=== PATIENT | male | born 1985 | race Hispanic/Latino ===

== ENCOUNTER 2016-11-08 18:15 | Emergency (ER) | payer SELFPAY ==
[2016-11-08 18:30] VITALS: TEMP 97.9
[2016-11-08] MEDS ORDERED: KETOROLAC TROMETHAMINE INJ 30 MG/ML VIAL IV ONE (18:50)
[2016-11-08] MEDS ORDERED: SODIUM CHLORIDE 0.9% (FLUSH) 10 ML SYG IV PRN (18:50)
[2016-11-08] MEDS ORDERED: ONDANSETRON INJ 4 MG/2 ML VIAL IV ONE (18:50)
--- NOTE | 2016-11-08 19:00 | ED.PDOC ---
History of Present Illness - General Information Source: patient, family - History of Present Illness Initial Comments: PT PRESENTS TO THE ED WITH COMPLAINTS OF PROGRESSIVELY WORSENING LUQ/LLQ ABDOMINAL PAIN X 1 WEEK. PT REPORTS PREVIOUS EPISODES OF POST PRANDIAL EPIGASTRIC PAIN BUT NOW STATES THAT PAIN IS CONSTANT. PT DENIES, FEVER, CHILLS , NAUSEA, VOMITING, CONSTIPATION. Abdominal Pain Onset Location: LUQ, LLQ Pain Radiation: no radiation Quality: moderate, severe, steady Timing/Duration: 1 week Improving Factors: nothing Worsening Factors: eating Associated Symptoms: denies symptoms <Abdoulaye Hammond - Last Filed: 11/08/16 18:58> <Rafia Tipton - Last Filed: 11/08/16 21:21> - General Chief Complaint: Abdominal Pain Stated Complaint: upper abd pain, worse after eating Time Seen by Provider: 11/08/16 18:46 Review of Systems - Review of Systems Constitutional: Denies: chills, fever EENTM: Denies: ear pain, nose congestion Respiratory: Denies: cough, short of breath Cardiology: Denies: chest pain, palpitations Gastrointestinal/Abdominal: States: see HPI, abdominal pain. Denies: nausea, vomiting Genitourinary: Denies: dysuria, frequency Musculoskeletal: Denies: joint pain, joint swelling Skin: Denies: dryness, lesions Neurological: States: no symptoms reported Endocrine: States: no symptoms reported <Abdoulaye Hammond - Last Filed: 11/08/16 18:58> Past Medical History (General) - Patient Medical History Hx Seizures: No Hx Stroke: No Hx Dementia: No Hx Asthma: No Hx of COPD: No Hx Cardiac Disorders: No Hx Congestive Heart Failure: No Hx Pacemaker: No Hx Hypertension: No Hx Thyroid Disease: No Hx Diabetes: No Hx Gastroesophageal Reflux: Yes Hx Renal Disease: No Hx Cancer: No Hx of HIV: No Hx Hepatitis C: No Hx MRSA: No Surgical History: no surgical history - Vaccination History Hx Tetanus, Diphtheria Vaccination: No Hx Influenza Vaccination: No Hx Pneumococcal Vaccination: No Immunizations Up to Date: No - Social History Hx Tobacco Use: No Hx Chewing Tobacco Use: No Hx Alcohol Use: Yes Hx Substance Use: No Hx Substance Use Treatment: No Hx Depression: No Feels Threatened In Home Enviroment: No Feels Threatened In a Relationship: No Hx Physical Abuse: No Hx Emotional Abuse: No Hx Suspected Abuse: No - Female History Patient is a Female of Child Bearing Age (10 -59 yrs old): No Patient : No <Abdoulaye Hammond - Last Filed: 11/08/16 18:58> Family Medical History - Family History Mother Family History: No Known <Abdoulaye Hammond - Last Filed: 11/08/16 18:58> Physical Exam - Physical Exam General Appearance: Alert, Obvious distress, Obese, Well Developed, Well Groomed , Well Hydrated Eyes, Ears, Nose, Throat Exam: normal ENT inspection Neck: normal inspection Respiratory: normal breath sounds, no respiratory distress Cardiovascular/Chest: regular rate, rhythm, no edema Gastrointestinal/Abdominal: soft, tenderness - DIFFUSE TENDERNESS, WORSE IN LUQ/ LLQ Back Exam: normal inspection Extremity: non-tender, normal inspection Neurologic: alert, normal mood/affect, oriented x 3 Skin Exam: normal color, warm/dry <Abdoulaye Hammond - Last Filed: 11/08/16 18:58> Progress - Progress Progress: 11/08/16 19:[address] TIPTON PENDING LABS/CT ABD <Abdoulaye Hammond - Last Filed: 11/08/16 18:58> - Progress Progress: 11/08/16 20:[address] results [address] Dr. Lora. He does not feel that the patients pain is due to his appendix and recommended outpatient follow up. Discussed with patient and . He has had LUQ pain after eating for months. Along with the pain he gets bloated. Re-examined patient and he does have RLQ tenderness with questionable mild rebound along with LLQ and LUQ tenderness. Will give Protonix IV. He does not want IV fluids. Will see if Protonix helps with his pain. 11/08/16 21:15 Patient reports he is feeling better after Protonix. Still some concern for early appendicitis so will treat with Cipro and Flagyl. ER warnings given. - Results/Orders Results/Orders: Laboratory Tests 11/08/16 11/08/16 11/08/16 18:50 18:50 18:50 WBC 9.8 RBC 5.41 Hgb 16.2 Hct 47.3 MCV 87.3 MCH 29.9 MCHC 34.2 RDW 13.3 Plt Count 183 MPV 8.5 Absolute Neuts (auto) 5.90 Absolute Lymphs (auto) 3.10 Absolute Monos (auto) 0.50 Absolute Eos (auto) 0.20 Absolute Basos (auto) 0.10 Neutrophils % 60.4 Lymphocytes % 31.7 Monocytes % 5.4 Eosinophils % 1.8 Basophils % 0.7 Sodium 138 Potassium 3.8 Chloride 103 Carbon Dioxide 28 Anion Gap 10.8 L BUN 20 H Creatinine 1.04 BUN/Creatinine Ratio 19.2 Random Glucose 107 H Serum Osmolality 278.8 Calcium 9.4 Total Bilirubin 0.2 Direct Bilirubin < 0.1 Indirect Bilirubin 0.1 L AST 35 ALT 61 H Alkaline Phosphatase 64 Creatine Kinase 605 H* CK-MB (CK-2) 9.4 H* CK-MB (CK-2) % 1.55 Troponin I < 0.02 Serum Total Protein 8.1 Albumin 4.7 Amylase 64 Lipase 25 Urine Color Urine Appearance Urine pH Ur Specific [place] Urine Protein Urine Glucose (UA) Urine Ketones Urine Blood Urine Nitrite Urine Bilirubin Urine Urobilinogen Ur Leukocyte Esterase Urine RBC Urine WBC Ur Epithelial Cells Urine Bacteria 11/08/16 19:30 WBC RBC Hgb Hct MCV MCH MCHC RDW Plt Count MPV Absolute Neuts (auto) Absolute Lymphs (auto) Absolute Monos (auto) Absolute Eos (auto) Absolute Basos (auto) Neutrophils % Lymphocytes % Monocytes % Eosinophils % Basophils % Sodium Potassium Chloride Carbon Dioxide Anion Gap BUN Creatinine BUN/Creatinine Ratio Random Glucose Serum Osmolality Calcium Total Bilirubin Direct Bilirubin Indirect Bilirubin AST ALT Alkaline Phosphatase Creatine Kinase CK-MB (CK-2) CK-MB (CK-2) % Troponin I Serum Total Protein Albumin Amylase Lipase Urine Color Yellow Urine Appearance Clear Urine pH 6.0 Ur Specific [place] >= 1.030 Urine Protein Negative Urine Glucose (UA) Negative Urine Ketones Trace Urine Blood Negative Urine Nitrite Negative Urine Bilirubin Negative Urine Urobilinogen 0.2 Ur Leukocyte Esterase Negative Urine RBC 0-1 Urine WBC 0 Ur Epithelial Cells 0-1 Urine Bacteria 0 - EKG/XRAY/CT EKG: Sinus, nonspecific ST T wave Chg - Inverted T-waves I, II & aVL Comments: Rate 81, no old EKG avail for comparison CT Ordered: Yes CT Interpretation Call Back: Yes - Enlargeed appendix @ 8mm, no inflammatory changes, o/w nl per Rad <Rafia Tipton - Last Filed: 11/08/16 21:21> Departure <Abdoulaye Hammond - Last Filed: 11/08/16 18:58> - Departure Time of Disposition: 21:16 Diet: bland diet - No alcohol, fried foods. Limits fatty foods, caffine and citrus Activity: increase activity as tolerated <Rafia Tipton - Last Filed: 11/08/16 21:21> - Departure Clinical Impression: Gastritis Qualifiers: Gastritis type: unspecified gastritis Chronicity: acute Gastritis bleeding: without bleeding Qualified Code(s): K29.00 - Acute gastritis without bleeding Abdominal pain Qualifiers: Abdominal location: right lower quadrant Qualified Code(s): R10.31 - Right lower quadrant pain Disposition: Discharge to Home or Self Care Condition: Good Departure Forms: ED Discharge - Pt. 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
--- NOTE | 2016-11-08 20:26 | CT ---
PROCEDURE: Abdomen/Pelvis w/Contrast HISTORY: LEFT LOWER/UPPER ABD PAIN Indication: Same as above Comparison: None . Technique: CT of the abdomen and pelvis was done with intravenous contrast. Images were obtained from the lung base to the level of the pubic symphysis in axial plane, followed by orthogonal sagittal and coronal reconstruction. Oral contrast was not given for the study. The patient was injected with contrast intravenously, without any documented immediate adverse reactions. This exam was performed according to our departmental dose-optimization program, which includes automated exposure control, adjustment of the mA and/or KV according to the patient's size and/or use of iterative reconstruction technique. FINDINGS: Images through the lung bases do not show any focal infiltrates or pleural effusions. The liver, gallbladder, pancreas, spleen and the bilateral adrenal glands appear unremarkable. The bilateral kidneys enhance with contrast in a normal fashion. The urinary bladder is unremarkable . The bilateral ureters and the bilateral periureteral soft tissues and fat planes are unremarkable. The small bowel appears unremarkable, without any evidence of small bowel obstruction or bowel wall thickening. There is no CT evidence of pericecal inflammatory change or ileocecal mesenteric adenitis. The appendix is mildly enlarged measuring 8 mm across and contains an appendicolith distally. However there is no periappendiceal inflammatory change. Given the size criteria the possibility of early acute appendicitis is difficult to exclude and clinical correlation for this finding is requested The ileocecal junction appears unremarkable. There is no CT evidence of acute colonic diverticulitis or colitis or large bowel obstruction. The splenic and portal veins are of normal caliber, without any filling defects. There is no pathological lymphadenopathy in the retroperitoneum or in the pelvic region. There is no evidence of free fluid or free air in the abdomen or the pelvic region. There is no clinically significant abdominal aortic aneurysm. There is no clinically significant inguinal or ventral hernia. The visualized lumbar spine is unremarkable . The paravertebral soft tissues are unremarkable. The remainder of the pelvic structures are unremarkable. The findings were discussed with Dr. Gama, from the ER service at 8:24 PM IMPRESSION: The appendix is mildly enlarged measuring 8 mm across and contains an appendicolith distally. However there is no periappendiceal inflammatory change. Given the size criteria the possibility of early acute appendicitis is difficult to exclude and clinical correlation for this finding is requested. Location of Interpretation: [facility] Electronically signed by: Jared Iniguez MD 11/08/2016 8:25 PM CDT Workstation: [id number]
[2016-11-08] MEDS ORDERED: PANTOPRAZOLE SODIUM IV 40 MG VIAL IV ONE (20:39)
[2016-11-08] MEDS ORDERED: SODIUM CHLORIDE 0.9% 1000ML 1,000 ML IVS ONE (20:40)
[2016-11-08] MEDS ORDERED: CIPROFLOXACIN 500 MG TAB PO ONE (21:14)
[2016-11-08] MEDS ORDERED: metroNIDAZOLE 500 MG TAB PO ONE (21:14)
[2016-11-08 21:34] VITALS: BP 131/83; O2SAT 96
== END 2016-11-08 21:31 | disposition home or self-care (01) ==
LOC: ER 18:15
DX: K29.00 Acute gastritis without bleeding (principal)
CPT/HCPCS: 36415; 74177; 80048; 80076; 81001; 82150; 82550; 82553; 83690; 84484; 85025; 93005; J1885; J2405